=== PATIENT | female | born 1965 | race Caucasian/White ===

== ENCOUNTER 2021-08-01 10:02 | Emergency (ER) | payer OTHER, SELFPAY ==
[2021-08-01 10:35] VITALS: BP 135/78; PULSE 84; RESP 18; TEMP 37; O2SAT 99
--- NOTE | 2021-08-01 10:48 | ED.EAR ---
HPI - Ear Problem General Chief complaint: Ear Stated complaint: bilateral ear pain Time Seen by Provider: 08/01/21 10:48 Source: patient, RN notes reviewed and old records reviewed Mode of arrival: ambulatory Limitations: no limitations History of Present Illness HPI Narrative: 56 year old female who presents to [facility] care with complaints of pain to her right ear for the past few days. She reports that she has been taking Coricidin brand HBP for her sinus congestion also. Patient denies any fevers, chills or sweats, or any body aches, has had Covid vaccinations. Patient reports that she has had some dry cough noted at times, denies any shortness of breath, no headache or sore throat, denies any chest pains or any feelings of chest congestion.Patient reports that her right ear feels like something sloshing around in it and hearing is decreased. MD Complaint: ear pain Location: right ear Duration: constant Related Data Allergies Allergy/AdvReac Type Severity Reaction Status Date / Time aspirin Allergy Intermediate GI upset Verified 08/01/21 10:31 erythromycin base Allergy Intermediate GI upset Verified 08/01/21 10:31 Penicillins Allergy Intermediate GI upset, Verified 08/01/21 10:31 swelling Sulfa (Sulfonamide Allergy Mild hives Verified 08/01/21 10:31 Antibiotics) Review of Systems Review of Systems: CONSTITUTIONAL: Denies fever, chills, or sweats. EYES: Denies visual changes, redness, or discharge. ENT:Positive for rhinorrhea, congestion,no sore throat, bilateral otalgia right > than left.. CARDIOVASCULAR: Denies chest pain, palpitations, or edema. RESPIRATORY: Intermittent dry cough with no dyspnea at rest or with activity. GASTROINTESTINAL: Denies abdominal pain, nausea, vomiting, or diarrhea. GENITOURINARY: Denies dysuria or hematuria. SKIN: Denies rash or itching. MUSCULOSKELETAL: Denies back pain, joint pain, or myalgia. NEUROLOGIC: Denies headache, numbness, or weakness. PSYCHIATRIC: Denies anxiety or depression. All systems reviewed & are unremarkable except as noted in HPI and below PMFSH Past Medical History Medical History (Updated 08/02/21 @ 14:55 by Rossi Campos NP) Arthritis Depression GERD (gastroesophageal reflux disease) Kidney stone Nonalcoholic fatty liver disease without nonalcoholic steatohepatitis (CHERRY) Ulcer Surgical History Surgical History (Updated 08/02/21 @ 14:59 by Rossi Campos NP) H/O breast surgery milk ducts removed bilateral breasts H/O heart surgery age 5 for leaking valve History of appendectomy History of hernia repair Hx of cholecystectomy Previous section Family History Family History Father Diabetes mellitus Family history of cardiovascular disease Sibling Diabetes mellitus Mother Family history of lung cancer Family history of malignant neoplasm of brain Family history of malignant neoplasm of bone Social History Social History (Updated 08/02/21 @ 15:00 by Rossi Campos NP) Smoking status: Former smoker Smoking end date: 09/24/04 Alcohol intake: former Alcohol use details: no alcohol use for over 25 years Substance use: never Gender identity (if verbalized by the patient): Female Comments At time of signature, agree with nursing past medical, surgical, social and family history. There is no relevant family history pertinent to the presenting complaint Exam Narrative: GENERAL: Well-appearing, well-nourished, and in no acute distress. HEAD: Normocephalic, atraumatic. EYES: PERRLA and EOMI. ENT: Nares with mild redness,clear rhinorrhea no epistaxis. Mucous membranes moist.Right TM bulging with purulent drainage from ear,no tragal tenderness, Left ear TM normal with no redness or drainage noted, throat pink with no lesions or exudates, no tonsil enlargement NECK: Supple.No lymphadenopathy CHEST: Clear to auscultation. No respiratory distress. occasional
== END 2021-08-01 11:15 | disposition home or self-care (01) ==
PROVIDERS: Emergency Provider Registered Nurse
DX: H66.91 Otitis media, unspecified, right ear (principal); Z87.891 Personal history of nicotine dependence; M19.90 Unspecified osteoarthritis, unspecified site; K21.9 Gastro-esophageal reflux disease without esophagitis; K76.0 Fatty (change of) liver, not elsewhere classified
CPT/HCPCS: 99213; G0463

== ENCOUNTER 2021-10-10 17:58 | Emergency (ER) | payer OTHER, SELFPAY ==
[2021-10-10 18:08] VITALS: BP 151/90; PULSE 94; RESP 18; TEMP 37; O2SAT 98
--- NOTE | 2021-10-10 18:15 | ED.WOUNDLAC ---
HPI - Wound/Laceration General Chief Complaint: Skin/Abscess/Foreign Body Stated Complaint: finger laceration Time Seen by Provider: 10/10/21 18:16 Source: patient, RN notes reviewed and old records reviewed Mode of arrival: ambulatory Limitations: no limitations History of Present Illness HPI narrative: 56-year-old female who presents to [facility] care with complaints of laceration to the distal left ring finger on the palmar aspect which occurred when she was trying to open something using her knife and took layer of skin tissue off. Patient states that she has been unable to get it to stop bleeding, she has held her hand up, put pressure dressing on and used ice with bleeding continuing. Patient examined once dressing removed with avulsion type of wound to distal left finger noted, tetanus is not up to date. Patient is right hand dominant Onset (ago): hour(s) (1.5) Extremity Location: Left: hand (Left distal ring finger palmar aspect) Place: home Patient tetanus UTD: No Context: accidental Associated symptoms: none Treatments prior to arrival: cold therapy and bandage Related Data Allergies Allergy/AdvReac Type Severity Reaction Status Date / Time aspirin Allergy Intermediate GI upset Verified 10/10/21 18:14 erythromycin base Allergy Intermediate GI upset Verified 10/10/21 18:14 Penicillins Allergy Intermediate GI upset, Verified 10/10/21 18:14 swelling Sulfa (Sulfonamide Allergy Mild hives Verified 10/10/21 18:14 Antibiotics) Review of Systems Review of Systems: CONSTITUTIONAL: Denies fever, chills, or sweats. EYES: Denies visual changes, redness, or discharge. ENT: Denies rhinorrhea, congestion, sore throat, or otalgia. CARDIOVASCULAR: Denies chest pain, palpitations, or edema. RESPIRATORY: Denies cough or dyspnea. GASTROINTESTINAL: Denies abdominal pain, nausea, vomiting, or diarrhea. GENITOURINARY: Denies dysuria or hematuria. SKIN: Denies rash or itching.Positive for laceration with some avulsion of tissue from campbell aspect of left distal ring finger MUSCULOSKELETAL: Denies back pain, joint pain, or myalgia. NEUROLOGIC: Denies headache, numbness, or weakness. PSYCHIATRIC: Positive history of anxiety or depression. All systems reviewed & are unremarkable except as noted in HPI and below PMFSH Past Medical History Medical History Arthritis Depression GERD (gastroesophageal reflux disease) Kidney stone Nonalcoholic fatty liver disease without nonalcoholic steatohepatitis (CHERRY) Ulcer Surgical History Surgical History H/O breast surgery milk ducts removed bilateral breasts H/O heart surgery age 5 for leaking valve History of appendectomy History of hernia repair Hx of cholecystectomy Previous section Family History Family History Father Diabetes mellitus Family history of cardiovascular disease Sibling Diabetes mellitus Mother Family history of lung cancer Family history of malignant neoplasm of brain Family history of malignant neoplasm of bone Social History Social History (Updated 08/02/21 @ 15:00 by Rossi Campos NP) Smoking status: Former smoker Smoking end date: 09/24/04 Alcohol intake: former Alcohol use details: no alcohol use for over 25 years Substance use: never Gender identity (if verbalized by the patient): Female Comments At time of signature, agree with nursing past medical, surgical, social and family history. There is no relevant family history pertinent to the presenting complaint Exam Narrative: GENERAL: Well-appearing, well-nourished, and in no acute distress. HEAD: Normocephalic, atraumatic. EYES: PERRLA and EOMI. ENT: Nares clear, no rhinorrhea or epistaxis. Mucous membranes moist.TM's normal with good light reflex, throat pink with no lesions or exudates no enlarged tonsil
[2021-10-10] MEDS: TETANUS,DIPHTHERIA,AC PERTUSSIS ADULT (0.5 ML) BOOSTRIX IM (18:28)
== END 2021-10-10 18:47 | disposition home or self-care (01) ==
PROVIDERS: Emergency Provider Registered Nurse
DX: S61.205A Unspecified open wound of left ring finger without damage to nail, initial encounter (principal); W26.0XXA Contact with knife, initial encounter; Z23 Encounter for immunization; M19.90 Unspecified osteoarthritis, unspecified site; K21.9 Gastro-esophageal reflux disease without esophagitis; Z87.891 Personal history of nicotine dependence
CPT/HCPCS: 90471; 90715; 99212; G0463

== ENCOUNTER 2021-12-09 10:03 | Emergency (ER) | payer OTHER, SELFPAY ==
--- NOTE | ~2021-12-09 | XR_ITS ---
XR shoulder LT min 2V, XR humerus LT 12/09/2021 10:37 (accession [id number]), 12/09/2021 10:36 (accession [id number]) Indication: Left shoulder and arm pain Procedure: 4 views left shoulder and 2 views left humerus Comparison: No prior studies for comparison. Findings: No acute fracture, subluxation or dislocation. There is anatomic alignment. No focal soft t issue abnormality. No foreign bodies. Impression: 1: No acute fracture. Reviewed, dictated and finalized at location B. Impression: 1: No acute fracture. Impression: 1: No acute fracture.
--- NOTE | 2021-12-09 10:05 | ED.FALL ---
HPI - Fall General Chief Complaint: Extremity Injury, Upper Stated Complaint: fall Time Seen by Provider: 12/09/21 10:15 Source: patient, RN notes reviewed and old records reviewed Mode of arrival: ambulatory Limitations: no limitations History of Present Illness HPI Narrative: 56-year-old female presents to the [facility] with complaints of a fall. Patient reports that she fell at work 2 days ago. At that time she was not dizzy, did not have chest pain. States that she just tripped and fell landing on her left side. Has a bruise to the medial aspect left knee, full range of motion. Denies any pain in the knee. Reports left shoulder pain with movements into the distal left humeral area. No bruising or swelling noted. Full range of motion of the wrist. Positive radial pulse. Capillary refill under 2 seconds. Able to flex at the elbow, unable to completely straighten secondary to pain. Patient also reports pain generalized left shoulder with movement. Has taken Aleve and Tylenol PM Requesting a work note for off today MD complaint: fall Onset (ago): day(s) (2) Related Data Home Medications Medication Instructions Recorded Confirmed ascorbate calcium (vitamin C) 500 mg PO DAILY 12/09/21 12/09/21 cholecalciferol (vitamin D3) 25 mcg PO DAILY 12/09/21 12/09/21 vitamin B complex [B 1 tablet PO DAILY 12/09/21 12/09/21 Complex-Vitamin B12] Allergies Allergy/AdvReac Type Severity Reaction Status Date / Time aspirin Allergy Intermediate GI upset Verified 12/09/21 10:23 erythromycin base Allergy Intermediate GI upset Verified 12/09/21 10:23 Penicillins Allergy Intermediate GI upset, Verified 12/09/21 10:23 swelling Sulfa (Sulfonamide Allergy Mild hives Verified 12/09/21 10:23 Antibiotics) Review of Systems Review of Systems: All systems reviewed & are unremarkable except as noted in HPI and below Constitutional: Constitutional: Reports no additional constitutional complaints, Denies chills, Denies fatigue, Denies fever(s) and Denies weakness Eyes: Eyes: Reports no additional eye complaints ENT: Reports system reviewed and no additional complaints, except as documented Cardiovascular: Cardiovascular: Reports no additional cardiovascular complaints and Denies chest pain Respiratory: Respiratory: Reports no additional respiratory complaints, Denies cough, Denies dyspnea and Denies wheezing Gastrointestinal: Gastrointestinal: Reports no additional gastrointestinal complaints, Denies abdominal pain, Denies nausea and Denies vomiting Musculoskeletal: Musculoskeletal: Reports as per HPI and Reports arthralgias (Left shoulder, distal left humerus) Integumentary/Breasts: Skin/Breast: Reports system reviewed and no additional complaints, except as docu Neurologic: Reports system reviewed and no additional complaints, except as documented Psychiatric: Psychiatric: Reports no additional psychiatric complaints Allergic/Immunologic: Allergic/Immunologic: Reports no additional allergic/immunologic complaints PMFSH Past Medical History Medical History Arthritis Depression GERD (gastroesophageal reflux disease) Kidney stone Nonalcoholic fatty liver disease without nonalcoholic steatohepatitis (CHERRY) Ulcer Surgical History Surgical History H/O breast surgery milk ducts removed bilateral breasts H/O heart surgery age 5 for leaking valve History of appendectomy History of hernia repair Hx of cholecystectomy Previous section Family History Family History Father Diabetes mellitus Family history of cardiovascular disease Sibling Diabetes mellitus Mother Family history of lung cancer Family history of malignant neoplasm of brain Family history of malignant neoplasm of bone Social History Social History (Reviewed 12/09/21 @ 10:23 by
[2021-12-09 10:20] VITALS: BP 159/75; PULSE 88; RESP 18; TEMP 36.6; O2SAT 99
== END 2021-12-09 10:52 | disposition home or self-care (01) ==
PROVIDERS: Emergency Provider Nurse Practitioner
DX: S40.012A Contusion of left shoulder, initial encounter (principal); S40.022A Contusion of left upper arm, initial encounter; W01.0XXA Fall on same level from slipping, tripping and stumbling without subsequent striking against object, initial encounter; M19.90 Unspecified osteoarthritis, unspecified site; K21.9 Gastro-esophageal reflux disease without esophagitis; K76.0 Fatty (change of) liver, not elsewhere classified
CPT/HCPCS: 73030; 73060; 99213; G0463

== ENCOUNTER 2022-04-04 06:01 | Emergency (ER) | payer OTHER, BC, SELFPAY ==
--- NOTE | ~2022-04-04 | XR_ITS ---
EXAMINATION: XR chest 2V DATE: 04/04/2022 07:07 INDICATION: Cough. TECHNIQUE: Frontal and lateral views of the chest were obtained. COMPARISON: Chest 2 views 08/04/2018 FINDINGS: The chest demonstrates clear lungs without pneumonia, pleural effusion, or pneumothorax. Th e heart size is normal. Surgical clips in the right upper quadrant are likely from cholecystectomy. IMPRESSION: 1. No acute cardiopulmonary disease. Reviewed, dictated and finalized at location A.
[2022-04-04 06:07] VITALS: BP 169/95; PULSE 102; RESP 23; TEMP 37.2; O2SAT 99
--- NOTE | 2022-04-04 06:32 | ED.FEVER ---
HPI - Fever General Chief Complaint: Fever <Fer Palm MD - Last Filed: 04/04/22 06:58> Stated Complaint: uti fever cold symptoms <Fer Palm MD - Last Filed: 04/04/22 06:58> Time Seen by Provider: 04/04/22 06:15 <Fer Palm MD - Last Filed: 04/04/22 06:58> Source: patient <Fer Palm MD - Last Filed: 04/04/22 06:58> History of Present Illness HPI Narrative: Presents with fever and respiratory symptoms. Patient is a symptoms started yesterday initially with subjective fevers. And she developed cough congestion and some mild shortness of breath. Symptoms progressed to diffuse body aches and was not improving so she came to ER for further evaluation. Reports she used to work and [employer] approximately 1 week ago COVID was present. Does report she is up-to-date on her vaccines. She denies focal chest pain or abdominal pain. Reports her cough is productive without any blood denies any nausea vomiting or diarrhea. <Fer Palm MD - Last Filed: 04/04/22 06:58> Related Data Allergies/Adverse Reactions: Allergies Allergy/AdvReac Type Severity Reaction Status Date / Time aspirin Allergy Intermediate GI upset Verified 04/04/22 06:10 erythromycin base Allergy Intermediate GI upset Verified 04/04/22 06:10 Penicillins Allergy Intermediate GI upset, Verified 04/04/22 06:10 swelling Sulfa (Sulfonamide Allergy Mild hives Verified 04/04/22 06:10 Antibiotics) <Fer Palm MD - Last Filed: 04/04/22 06:58> Review of Systems Review of Systems: CONSTITUTIONAL: Subjective fevers and chills EYES: Denies visual changes, redness, or discharge. ENT: Reports congestion and runny nose CARDIOVASCULAR: Denies chest pain, palpitations, or edema. RESPIRATORY: Reports cough and shortness of breath GASTROINTESTINAL: Denies abdominal pain, nausea, vomiting, or diarrhea. GENITOURINARY: Denies dysuria or hematuria. SKIN: Denies rash or itching. MUSCULOSKELETAL: Denies back pain, joint pain. NEUROLOGIC: Denies headache, numbness, dizziness, or weakness. PSYCHIATRIC: Denies anxiety or depression. <Fer Palm MD - Last Filed: 04/04/22 06:58> All systems reviewed & are unremarkable except as noted in HPI and below <Fer Palm MD - Last Filed: 04/04/22 06:58> PMFSH Past Medical History Medical History: Medical History Arthritis Depression GERD (gastroesophageal reflux disease) Kidney stone Nonalcoholic fatty liver disease without nonalcoholic steatohepatitis (CHERRY) Ulcer <Fer Palm MD - Last Filed: 04/04/22 06:58> Surgical History Surgical History: Surgical History H/O breast surgery milk ducts removed bilateral breasts H/O heart surgery age 5 for leaking valve History of appendectomy History of hernia repair Hx of cholecystectomy Previous section <Fer Palm MD - Last Filed: 04/04/22 06:58> Family History Family History: Family History Father Diabetes mellitus Family history of cardiovascular disease Sibling Diabetes mellitus Mother Family history of lung cancer Family history of malignant neoplasm of brain Family history of malignant neoplasm of bone <Fer Palm MD - Last Filed: 04/04/22 06:58> Social History Social History: Social History Smoking status: Former smoker Smoking end date: 09/24/04 Alcohol intake: former Alcohol use details: no alcohol use for over 25 years Substance use: never Gender identity (if verbalized by the patient): Female <Fer Palm MD - Last Filed: 04/04/22 06:58> Exam Narrative: GENERAL: Well-appearing, well-nourished, and in no acute distress. HEAD: Normocephalic, atraumatic. EYES: PERRLA and EOMI. ENT: Nare
[2022-04-04 06:44] LABS: Basophils Percent Auto 0.3 % (0.2-1.2); Eosinophils Percent Auto 0.3 % (0-4.4); Hematocrit 42.3 % (37.0-47.0); Immature Granulocyte Absolute 0.06 K/mm3 (0.00-0.031); Lymphocytes Absolute Auto 0.63 K/mm3 (0.9-3.2); Lymphocytes Percent Auto 10.6 % (18.3-44.2); Mean Corpuscular HGB Conc 33.1 g/dl (32-36); Mean Corpuscular Volume 93.6 fl (80-100); Mean Platelet Volume 9.5 fl (7.4-10.4); Monocytes Absolute Auto 0.9 K/mm3 (0.1-0.6); Monocytes Percent Auto 14.4 % (2.6-8.5); Neutrophils Absolute Auto 4.4 K/mm3 (1.3-6.7); Neutrophils Percent Auto 73.4 % (45.5-73.1); Platelet Count Result 203 k/mm3 (150-375); Red Blood Count 4.52 M/mm3 (4.2-5.4); Red Cell Distribution Width 13.4 % (11.5-14.5)
[2022-04-04] MEDS: SODIUM CHLORIDE 0.9% IV 1,000 ML 999 ML IV CONT (06:48)
[2022-04-04 06:53] LABS: Alanine Aminotransferase 72 U/L (6-35); Albumin Level 4.3 g/dL (3.5-5.1); Alkaline Phosphatase 87 U/L (38-126); Anion Gap 7 mmol/L (8-16); Aspartate Amino Transferase 77 U/L (14-36); Bilirubin,Total 0.3 mg/dL (0.2-1.3); Blood Urea Nitrogen 11 mg/dL (7-17); Carbon Dioxide 24 mmol/L (22-30); Chloride 110 mmol/L (98-107); Estimated CRCL calculation 95 ml/min; Estimated Glomerular Filt Rate > 60; Glucose 124 mg/dL (65-110); Potassium 3.9 mmol/L (3.4-5.0); Sodium 141 mmol/L (137-145)
[2022-04-04 07:17] LABS: D Dimer < 0.27 ug/mL (<0.48)
--- NOTE | 2022-04-04 07:17 | PC.NURSE ---
RN report given to
[2022-04-04 07:32] LABS: SARS-CoV-2 RNA PCR Positive
== END 2022-04-04 08:13 | disposition home or self-care (01) ==
PROVIDERS: Emergency Medicine; Emergency Provider Emergency Medicine
DX: U07.1 COVID-19 (principal); M19.90 Unspecified osteoarthritis, unspecified site; F32.9 Major depressive disorder, single episode, unspecified; K21.9 Gastro-esophageal reflux disease without esophagitis; Z87.442 Personal history of urinary calculi
CPT/HCPCS: 36415; 71046; 80053; 85025; 85380; 96360; 99283; C9803; J7030; U0003; U0005

== ENCOUNTER 2022-11-09 09:44 | Emergency (ER) | payer BC, SELFPAY ==
[2022-11-09 10:00] VITALS: BP 141/81; PULSE 86; RESP 18; TEMP 36.6; O2SAT 99
[2022-11-09 10:01] VITALS: BP 141/81; PULSE 86; RESP 18; TEMP 36.6; O2SAT 99
--- NOTE | 2022-11-09 10:19 | ED.URI ---
HPI - URI/Sore Throat General Chief Complaint: Upper Respiratory Infection Stated Complaint: Sore Throat,Cough Time Seen by Provider: 11/09/22 10:20 Source: patient and RN notes reviewed Mode of arrival: ambulatory Limitations: no limitations History of Present Illness HPI Narrative: 57-year old female presented for c/o sore throat, sinus congestion, body aches, productive cough, onset 6 days. States she gets 'tonsillitis' often. 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 Tested negative for covid 3 days ago. Last known positive exposure was COVID a few weeks ago. Says I have asthma but they haven't diagnosed it yet. Ran out of albuterol last week, which she usually takes daily for my cough medicine. Denies shortness of breath, wheezing, chest pain, palpitations, or flank pain n/v/d,f/c. MD elicited complaint: cough Related Data Allergies Allergy/AdvReac Type Severity Reaction Status Date / Time aspirin AdvReac Intermediate GI upset Verified 11/09/22 10:00 erythromycin base AdvReac Intermediate GI upset Verified 11/09/22 10:00 Penicillins AdvReac Intermediate GI upset, Verified 11/09/22 10:00 swelling Sulfa (Sulfonamide AdvReac Mild hives Verified 11/09/22 10:00 Antibiotics) Review of Systems Review of Systems: CONSTITUTIONAL: Endorses malaise, chills, sweats EYES: Denies visual changes, redness, or discharge ENT: Reports rhinorrhea, congestion, sinus pain, sore throat CARDIOVASCULAR: Denies chest pain, palpitations, edema RESPIRATORY: Reports cough, post nasal drainage. Denies dyspnea or wheezing GASTROINTESTINAL: Denies abdominal pain, nausea, diarrhea. Endorses vomiting SKIN: Denies rash or itching MUSCULOSKELETAL: Endorses myalgia NEUROLOGIC: Denies headache PMFSH Past Medical History Medical History Arthritis Depression GERD (gastroesophageal reflux disease) Kidney stone Nonalcoholic fatty liver disease without nonalcoholic steatohepatitis (CHERRY) Ulcer Surgical History Surgical History H/O breast surgery milk ducts removed bilateral breasts H/O heart surgery age 5 for leaking valve History of appendectomy History of hernia repair Hx of cholecystectomy Previous section Family History Family History Father Diabetes mellitus Family history of cardiovascular disease Sibling Diabetes mellitus Mother Family history of lung cancer Family history of malignant neoplasm of brain Family history of malignant neoplasm of bone Social History Social History Smoking status: Former smoker Smoking end date: 09/24/04 Alcohol intake: former Alcohol use details: no alcohol use for over 25 years Substance use: never Gender identity (if verbalized by the patient): Female Exam Narrative: GENERAL: well-appearing EYES: conjunctivae clear ENT: Mucous membranes moist. Poor dentition. Unable to visualize Right TM due to cerumen impaction; no tragal tenderness. Oropharynx erythematous no tonsillar swelling; no lesions or exudate, no drooling, no hoarseness, no trismus, uvula midline. No tripod positioning, muffled voice, soft palate or pharyngeal wall bulging. Tender maxillary and frontal sinuses. NECK: Supple. large. No lymphadenopathy CHEST: Clear to auscultation, breath sounds equal. No wheezing, rhonchi, rales, or stridor. No respiratory distress, speaks in full sentences. HEART: Regular rate and rhythm. No murmur heard. ABD: soft, positive bowel sounds, nontender SKIN: Warm, dry, no rash. NEURO: Alert and oriented x3. Course Course Emergency Course: Patient is aware of diagnosis, understands and agrees to treatment plan. Anticipatory guidance given. Patient agrees to follow-up as directed and is aware of reasons to seek care at
== END 2022-11-09 10:53 | disposition home or self-care (01) ==
PROVIDERS: Emergency Provider Nurse Practitioner Family; PCP Nurse Practitioner Family
DX: J02.0 Streptococcal pharyngitis (principal); Z87.891 Personal history of nicotine dependence; M19.90 Unspecified osteoarthritis, unspecified site; K21.9 Gastro-esophageal reflux disease without esophagitis; K76.0 Fatty (change of) liver, not elsewhere classified
CPT/HCPCS: 87880; 99213; G0463

== ENCOUNTER 2023-06-10 09:15 | Emergency (ER) | payer BC, SELFPAY ==
[2023-06-10 09:24] VITALS: BP 148/85; PULSE 102; RESP 18; TEMP 37.2; O2SAT 97
--- NOTE | 2023-06-10 10:02 | ED.URI ---
HPI - URI/Sore Throat General Chief Complaint: Upper Respiratory Infection Stated Complaint: Sore Throat and Back Pain Source: patient Mode of arrival: ambulatory Limitations: no limitations History of Present Illness HPI Narrative: 58-year-old female presents to [facility] complaints of sore throat, nasal congestion, body aches, left lower back pain radiating down her left leg for the past 2-3 days. 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 Patient denies numbness or tingling. Patient denies urinary symptoms. Patient has been taking [id number] Tylenol and Mucinex with minimal relief. Patient denies fever, body aches, chills, nausea vomiting or diarrhea. MD elicited complaint: sore throat and nasal congestion Onset (ago): day(s) (2) Able to tolerate fluids by mouth: Yes Exacerbating factors: swallowing Treatments prior to arrival: acetaminophen and cold medicine Related Data Allergies Allergy/AdvReac Type Severity Reaction Status Date / Time aspirin AdvReac Intermediate GI upset Verified 11/09/22 10:00 erythromycin base AdvReac Intermediate GI upset Verified 11/09/22 10:00 Penicillins AdvReac Intermediate GI upset, Verified 11/09/22 10:00 swelling Sulfa (Sulfonamide AdvReac Mild hives Verified 11/09/22 10:00 Antibiotics) Review of Systems Constitutional: Constitutional: Denies chills, Denies fatigue, Denies fever(s) and Denies weakness ENT: Denies vertigo, Denies dizziness, Denies epistaxis, Reports nasal congestion and Reports sore throat Cardiovascular: Cardiovascular: Denies chest pain Respiratory: Respiratory: Denies cough, Denies dyspnea and Denies wheezing Gastrointestinal: Gastrointestinal: Denies diarrhea, Denies nausea and Denies vomiting Genitourinary: Genitourinary: Denies hematuria Musculoskeletal: Musculoskeletal: Reports arthralgias, Denies joint swelling and Denies muscle cramps Comments: Left lower back pain Integumentary/Breasts: Skin/Breast: Denies pruritus, Denies erythema, Denies rash and Denies skin ulcer Neurologic: Denies dizziness, Denies syncope and Denies headache(s) [facility] Past Medical History Medical History Arthritis Depression GERD (gastroesophageal reflux disease) Kidney stone Nonalcoholic fatty liver disease without nonalcoholic steatohepatitis (CHERRY) Ulcer Surgical History Surgical History H/O breast surgery milk ducts removed bilateral breasts H/O heart surgery age 5 for leaking valve History of appendectomy History of hernia repair Hx of cholecystectomy Previous section Family History Family History Father Diabetes mellitus Family history of cardiovascular disease Sibling Diabetes mellitus Mother Family history of lung cancer Family history of malignant neoplasm of brain Family history of malignant neoplasm of bone Social History Social History Smoking status: Former smoker Smoking end date: 09/24/04 Alcohol intake: former Alcohol use details: no alcohol use for over 25 years Substance use: never Gender identity (if verbalized by the patient): Female Comments At time of signature, I agree with nursing past medical, surgical, social and family history. There is no relevant family history pertinent to the presenting complaint. Exam Const: General: healthy appearing and no acute distress Nutritional Appearance: well nourished Orientation/consciousness: patient oriented x3 HENMT: Head: normal to inspection Ears: external ears normal, TM's normal bilaterally and EAC's normal Face/Nose/Sinus: Normal external nose present Face and sinus: normal facial exam Mouth: Yes Normal oral and palatal mucosa
== END 2023-06-10 10:19 | disposition home or self-care (01) ==
PROVIDERS: Emergency Provider Nurse Practitioner Family; PCP Nurse Practitioner Family
DX: J02.0 Streptococcal pharyngitis (principal); M54.50 Low back pain, unspecified; Z20.822 Contact with and (suspected) exposure to COVID-19; Z87.891 Personal history of nicotine dependence; M19.90 Unspecified osteoarthritis, unspecified site; K21.9 Gastro-esophageal reflux disease without esophagitis; K76.0 Fatty (change of) liver, not elsewhere classified
CPT/HCPCS: 81003; 87086; 87088; 87426; 87804; 87880; 99213; C9803; G0463

== ENCOUNTER 2023-09-01 10:37 | Emergency (ER) | payer BC, SELFPAY ==
[2023-09-01 10:54] VITALS: BP 155/87; PULSE 102; RESP 18; TEMP 36.9; O2SAT 98
--- NOTE | 2023-09-01 11:39 | ED.URI ---
HPI - URI/Sore Throat General Chief Complaint: Upper Respiratory Infection Stated Complaint: covid + home test,sorethroat Source: patient and RN notes reviewed Mode of arrival: ambulatory Limitations: no limitations History of Present Illness HPI Narrative: 58-year-old female tested positive for COVID at home, presented for complaint of sore throat this morning. States she tested positive for covid 2 days ago, after several people at her work tested positive. She reports nasal congestion, mild cough, but states she had been feeling pretty good. Woke this morning feeling like throat was on fire. Denies sob, wheezing, n/v/d/f/c. MD elicited complaint: cough Related Data Home Medications Medication Instructions Recorded Confirmed albuterol sulfate 90 mcg/actuation 2 puff inhalation PRN PRN 09/01/23 09/01/23 aerosol inhaler Shortness Of Breath Or Wheezing Allergies Allergy/AdvReac Type Severity Reaction Status Date / Time aspirin AdvReac Intermediate GI upset Verified 09/01/23 11:57 erythromycin base AdvReac Intermediate GI upset Verified 09/01/23 11:57 Penicillins AdvReac Intermediate GI upset, Verified 09/01/23 11:57 swelling Sulfa (Sulfonamide AdvReac Mild hives Verified 09/01/23 11:57 Antibiotics) Review of Systems Review of Systems: CONSTITUTIONAL: Denies malaise, chills, sweats, fever EYES: Denies visual changes, redness, or discharge ENT: Reports rhinorrhea, congestion, sore throat CARDIOVASCULAR: Denies chest pain, palpitations, edema RESPIRATORY: Reports cough, post nasal drainage. Denies dyspnea GASTROINTESTINAL: Denies abdominal pain, nausea, vomiting, diarrhea SKIN: Denies rash or itching MUSCULOSKELETAL: Endorses myalgia NEUROLOGIC: Denies headache PMFSH Past Medical History Medical History Arthritis Depression GERD (gastroesophageal reflux disease) Kidney stone Nonalcoholic fatty liver disease without nonalcoholic steatohepatitis (CHERRY) Ulcer Surgical History Surgical History H/O breast surgery milk ducts removed bilateral breasts H/O heart surgery age 5 for leaking valve History of appendectomy History of hernia repair Hx of cholecystectomy Previous section Family History Family History Father Diabetes mellitus Family history of cardiovascular disease Sibling Diabetes mellitus Mother Family history of lung cancer Family history of malignant neoplasm of brain Family history of malignant neoplasm of bone Social History Social History Smoking status: Former smoker Smoking end date: 09/24/04 Alcohol intake: former Alcohol use details: no alcohol use for over 25 years Substance use: never Gender identity (if verbalized by the patient): Female Exam Narrative: GENERAL: Mildly ill-appearing, nontoxic no acute distress. HEAD: Normocephalic EYES: PERRLA, conjunctivae clear ENT: Mucous membranes moist. TM pearly red with dull light reflex bilaterally; no tragal tenderness. Oropharynx not erythematous without lesions or exudate, edentulous; no drooling, no hoarseness, no trismus, uvula midline. No tripod positioning, muffled voice, soft palate or pharyngeal wall bulging NECK: Supple. No lymphadenopathy CHEST: Clear to auscultation, breath sounds equal. No wheezing, rhonchi, rales, or stridor. No respiratory distress, speaks in full sentences. HEART: Regular rate and rhythm. No murmur heard. SKIN: Warm, dry, no rash. NEURO: Alert and oriented x3. PSYCH: Normal mood and affect Course Course Emergency Course: Patient is aware of diagnosis, understands and agrees to treatment plan. Anticipatory guidance given. Patient agrees to follow-up as directed and is aware of reasons to seek care at the emergency department. Portions
== END 2023-09-01 12:08 | disposition home or self-care (01) ==
PROVIDERS: Emergency Provider Nurse Practitioner Family; PCP Nurse Practitioner Family
DX: U07.1 COVID-19 (principal); Z87.891 Personal history of nicotine dependence; M19.90 Unspecified osteoarthritis, unspecified site; K21.9 Gastro-esophageal reflux disease without esophagitis; K76.0 Fatty (change of) liver, not elsewhere classified
CPT/HCPCS: 87081; 87880; 99213; G0463

== ENCOUNTER 2023-10-18 13:56 | Emergency (ER) | payer BC, SELFPAY ==
--- NOTE | ~2023-10-18 | XR_ITS ---
EXAMINATION: XR knee RT min 4V DATE: 10/18/2023 15:00 INDICATION: Right knee pain and mild swelling. TECHNIQUE: Anteroposterior, 2 oblique and crosstable lateral views of the right knee were obtained COMPARISON: None. FINDINGS: Alignment is normal. No fracture. Joint spaces appear normal although narrowing can be underestimate d on nonweightbearing imaging. There are small marginal ossified small 3 compartments consistent with at least mild tricompartmental osteoarthritis. Minimal right knee joint effusion without layering li pohemarthrosis. Soft tissues are unremarkable. IMPRESSION: 1. At least mild tricompartmental osteoarthritis and minimal joint effusion at the right knee. No acu te osseous abnormality. Reviewed, dictated and finalized at location A. [employer] IMPRESSION: 1. At least mild tricompartmental osteoarthritis and minimal joint effusion at the right knee. No acute osseous abnormality.
[2023-10-18 14:18] VITALS: BP 149/87; PULSE 105; RESP 18; TEMP 36.7; O2SAT 97
--- NOTE | 2023-10-18 14:40 | ED.LOWEXIN ---
HPI - Extremity Injury (Lower) General Chief Complaint: Extremity Injury, Lower Stated Complaint: swollen and painful rt knee Time Seen by Provider: 10/18/23 14:24 Source: patient Mode of arrival: ambulatory Limitations: no limitations History of Present Illness HPI Narrative: Yesenia is a 58-year-old female patient presenting to the clinic today with complaints of right knee pain and swelling. She reports symptoms began over the weekend. Has history of bursitis in the knee. Related Data Home Medications Medication Instructions Recorded Confirmed albuterol sulfate 90 mcg/actuation 2 puff inhalation PRN PRN 09/01/23 10/18/23 aerosol inhaler Shortness Of Breath Or Wheezing Allergies Allergy/AdvReac Type Severity Reaction Status Date / Time aspirin AdvReac Intermediate GI upset Verified 10/18/23 14:26 erythromycin base AdvReac Intermediate GI upset Verified 10/18/23 14:26 Penicillins AdvReac Intermediate GI upset, Verified 10/18/23 14:26 swelling Sulfa (Sulfonamide AdvReac Mild hives Verified 10/18/23 14:26 Antibiotics) Review of Systems Review of Systems: Pertinent positives per HPI. Patient denies any fever, chills, rash, headache, visual changes, dizziness, cough, shortness of breath, chest pain, palpitations, nausea, vomiting, diarrhea, constipation, abdominal pain, or any urinary issues. [facility] Past Medical History Medical History Arthritis Depression GERD (gastroesophageal reflux disease) Kidney stone Nonalcoholic fatty liver disease without nonalcoholic steatohepatitis (CHERRY) Ulcer Surgical History Surgical History H/O breast surgery milk ducts removed bilateral breasts H/O heart surgery age 5 for leaking valve History of appendectomy History of hernia repair Hx of cholecystectomy Previous section Family History Family History Father Diabetes mellitus Family history of cardiovascular disease Sibling Diabetes mellitus Mother Family history of lung cancer Family history of malignant neoplasm of brain Family history of malignant neoplasm of bone Social History Social History Smoking status: Former smoker Smoking end date: 09/24/04 Alcohol intake: former Alcohol use details: no alcohol use for over 25 years Substance use: never Gender identity (if verbalized by the patient): Female Comments At the time of my signature, I reviewed and agree with the nursing past medical, surgical, social, and family history. There is no relevant family history pertinent to the patient complaint. Exam Narrative: General: Well-developed, well nourished, in no apparent distress Head: Normocephalic, atraumatic. Cardio: Regular rate and rhythm, s1 and s2 normal, no murmur appreciated. Resp: Clear to auscultation bilaterally, no rhonchi, rales, wheezing or rubs. Musculoskeletal: No deformity, tender to palpation to the lateral anterior knee, pain with full flexion and extension, pain with valgus and varus testing, grossly normal range of motion, muscle strength strong and equal, peripheral pulse strong, no edema, no cyanosis, normal gait and station Course Course Emergency Course: Portions of this record may have been created with voice recognition software. Level of Care: Express Care Visit Vital Signs Vital signs: Vital Signs Temperature 36.7 C 10/18/23 14:18 Pulse Rate 105 H 10/18/23 14:18 Respiratory Rate 18 10/18/23 14:18 Blood Pressure 149/87 H 10/18/23 14:18 Pulse Oximetry 97 10/18/23 14:18 Oxygen Delivery Room Air 10/18/23 14:18 Temperature 36.7 C 10/18/23 14:18 Pulse Rate 105 H 10/18/23 14:18 Respiratory Rate 18 10/18/23 14:18 Blood Pressure 149/87 H 10/18/23 14:18 Pulse Oximetry 97
== END 2023-10-18 15:28 | disposition home or self-care (01) ==
PROVIDERS: Emergency Provider Nurse Practitioner Family; PCP Nurse Practitioner Family
DX: M17.11 Unilateral primary osteoarthritis, right knee (principal); M25.461 Effusion, right knee; Z87.891 Personal history of nicotine dependence
CPT/HCPCS: 73564; 99213; G0463

== ENCOUNTER 2023-12-11 08:05 | Emergency (ER) | payer BC, SELFPAY ==
--- NOTE | 2023-12-11 08:08 | ED.URI ---
HPI - URI/Sore Throat General Chief Complaint: Upper Respiratory Infection Stated Complaint: Sore Throat, Cough, Runny Nose Time Seen by Provider: 12/11/23 08:42 Source: patient and RN notes reviewed Mode of arrival: ambulatory Limitations: no limitations History of Present Illness HPI Narrative: 58-year-old female presents concern for 4 day intermittent history of nasal congestion, sore throat, cough. She denies fever, body aches, chills, sweats. She reports she has been taking Coricidin HBP with occasional relief. MD elicited complaint: nasal congestion Related Data Allergies Allergy/AdvReac Type Severity Reaction Status Date / Time aspirin AdvReac Intermediate GI upset Verified 10/18/23 14:26 erythromycin base AdvReac Intermediate GI upset Verified 10/18/23 14:26 Penicillins AdvReac Intermediate GI upset, Verified 10/18/23 14:26 swelling Sulfa (Sulfonamide AdvReac Mild hives Verified 10/18/23 14:26 Antibiotics) Review of Systems Review of Systems: CONSTITUTIONAL: Reports malaise. Denies chills, sweats, or fever. EYES: Denies visual changes, redness, or discharge. ENT: Reports rhinorrhea, congestion, otalgia CARDIOVASCULAR: Denies chest pain, palpitations, or edema. RESPIRATORY: Reports cough. Denies dyspnea. GASTROINTESTINAL: Denies abdominal pain, nausea, vomiting, diarrhea SKIN: Denies rash or itching. MUSCULOSKELETAL: Denies myalgia. NEUROLOGIC: Denies headache. All systems reviewed & are unremarkable except as noted in HPI and below PMFSH Past Medical History Medical History Arthritis Depression GERD (gastroesophageal reflux disease) Kidney stone Nonalcoholic fatty liver disease without nonalcoholic steatohepatitis (CHERRY) Ulcer Surgical History Surgical History H/O breast surgery milk ducts removed bilateral breasts H/O heart surgery age 5 for leaking valve History of appendectomy History of hernia repair Hx of cholecystectomy Previous section Family History Family History Father Diabetes mellitus Family history of cardiovascular disease Sibling Diabetes mellitus Mother Family history of lung cancer Family history of malignant neoplasm of brain Family history of malignant neoplasm of bone Social History Social History Smoking status: Former smoker Smoking end date: 09/24/04 Alcohol intake: former Alcohol use details: no alcohol use for over 25 years Substance use: never Gender identity (if verbalized by the patient): Female Comments At time of signature, agree with nursing past medical, surgical, social and family history. There is no relevant family history pertinent to the presenting complaint Exam Narrative: GENERAL: Nontoxic-appearing, well-nourished, and in no acute distress. HEAD: Normocephalic EYES: PERRLA, conjunctivae clear ENT: Nares clear, turbinates edematous and erythematous, clear discharge. Mucous membranes moist. Left tM pearly red with dull light reflex, right TM bulging and purulent appearing; no tragal tenderness. Oropharynx not erythematous without lesions. Tonsils not enlarged and without exudate, no drooling, no hoarseness, no trismus, uvula midline. NECK: Supple. No lymphadenopathy CHEST: Clear to auscultation, breath sounds equal. No wheezing, rhonchi, rales, or stridor. No respiratory distress, speaks in full sentences. HEART: Regular rate and rhythm. No murmur heard. SKIN: Warm, dry, no rash. NEURO: Alert and oriented x3. PSYCH: Normal mood and affect Course Course Emergency Course: Patient is aware of diagnosis, understands and agrees to treatment plan. Anticipatory guidance given. Patient agrees to follow-up as directed and is aware of reasons to seek care at the emergency department
[2023-12-11 08:26] VITALS: BP 142/70; PULSE 95; RESP 18; TEMP 36.6; O2SAT 98
== END 2023-12-11 09:01 | disposition home or self-care (01) ==
PROVIDERS: Emergency Provider Nurse Practitioner; PCP Nurse Practitioner Family
DX: H66.91 Otitis media, unspecified, right ear (principal); Z20.822 Contact with and (suspected) exposure to COVID-19; Z87.891 Personal history of nicotine dependence; M19.90 Unspecified osteoarthritis, unspecified site; K21.9 Gastro-esophageal reflux disease without esophagitis; K75.81 Nonalcoholic steatohepatitis (NASH)
CPT/HCPCS: 87081; 87426; 87804; 87880; 99213; G0463